=== PATIENT | female | born 1990 | race Hispanic/Latino ===

== ENCOUNTER 2022-01-08 13:10 | Emergency (ER) | payer MEDICAID ==
[~2022-01-08] VITALS: Ht 149.9 cm; Wt 59.0 kg
[2022-01-08 13:13] VITALS: BP 133/89
[2022-01-08] MEDS ORDERED: ONDANSETRON 4MG INJ IVP ONE (14:30)
[2022-01-08 14:36] LABS: APPEARANCE,URINE CLOUDY (CLEAR); BILIRUBIN,URINE NEGATIVE (NEGATIVE); COLOR,URINE YELLOW (YELLOW); GLUCOSE, URINE (UA) NEGATIVE (NEGATIVE); KETONES,URINE NEGATIVE (NEGATIVE); LEUKOCYTE ESTERASE ,URINE 500 Leu/uL (NEGATIVE); NITRATE,URINE NEGATIVE (NEGATIVE); OCCULT BLOOD,URINE NEGATIVE (NEGATIVE); PROTEIN,URINE 30 mg/dL (NEGATIVE); UROBILINOGEN,URINE 0.2 mg/dL (0.2-1.0)
[2022-01-08 14:37] LABS: BASOPHILS % (AUTO) 0.1 % (0.0-5.0); EOSINOPHILS % (AUTO) 0.4 % (0.0-8.0); HEMATOCRIT 37.2 % (36-48); LYMPHOCYTES % (AUTO) 6.6 % (21.0-51.0); MEAN CORPUSCULAR HEMOGLOBIN 27.8 pg (27.0-33.0); MEAN CORPUSCULAR HGB CONC 33.9 g/dL (32.0-36.0); MEAN CORPUSCULAR VOLUME 81.9 fL (79-99); MONOCYTES % (AUTO) 3.8 % (3.0-13.0); NEUTROPHILS % (AUTO) 88.6 % (40.0-77.0); PLATELET COUNT (AUTO) 320 K/uL (130-400); RED BLOOD CELL COUNT(AUTO) 4.54 MIL/uL (4.00-5.50); RED CELL DISTRIBUTION WIDTH 12.9 % (11.0-15.5); WHITE BLOOD COUNT (AUTO) 13.3 K/uL (4.8-10.8)
[2022-01-08 14:41] LABS: HCG,QUALITATIVE URINE NEGATIVE (NEGATIVE)
[2022-01-08 14:46] LABS: CREATININE 0.7 mg/dL (0.5-1.5); POTASSIUM 3.8 mmol/L (3.5-5.1)
[2022-01-08 14:49] LABS: BACTERIA,URINE MOD /HPF (None Seen); MUCUS,URINE MANY LPF (None Seen); SQUAMOUS EPITHELIAL CELL,UR MANY /HPF (0-2); WBC,URINE 26-50 /HPF (0-1)
[2022-01-08 14:53] LABS: TOTAL PROTEIN, SERUM 7.7 g/dL (6.0-8.3)
[2022-01-08] MEDS ORDERED: CEPH500B PO (14:59)
[2022-01-08] MEDS ORDERED: CEFTRIAXONE 1G VIAL IVP ONE (15:00)
== END 2022-01-08 15:31 | disposition home or self-care (01) ==
LOC: EDH 13:10
DX: N39.0 Urinary tract infection, site not specified (principal)
CPT/HCPCS: 99284; 96374; 96375; 80053; 83690; 85025; 87088; 87804 ×2; 81001; 81025; 36415; J0696; J2405

== ENCOUNTER → 2022-05-15 | Emergency (ER) | payer MEDICAID ==
[~2022-05-15] VITALS: Ht 149.9 cm; Wt 63.5 kg
[~2022-05-15] MED LIST: CEPH500B PO
[2022-05-15 12:32] LABS: HCG,QUALITATIVE URINE NEGATIVE (NEGATIVE)
[2022-05-15 12:33] LABS: APPEARANCE,URINE CLOUDY (CLEAR); BILIRUBIN,URINE NEGATIVE (NEGATIVE); COLOR,URINE LIGHT-YELLOW (YELLOW); GLUCOSE, URINE (UA) NEGATIVE (NEGATIVE); KETONES,URINE NEGATIVE (NEGATIVE); LEUKOCYTE ESTERASE ,URINE NEGATIVE Leu/uL (NEGATIVE); NITRATE,URINE NEGATIVE (NEGATIVE); OCCULT BLOOD,URINE LARGE (NEGATIVE); PH,URINE 7.5 (5.0-8.0); PROTEIN,URINE 10 mg/dL (NEGATIVE); UROBILINOGEN,URINE 0.2 mg/dL (0.2-1.0)
[2022-05-15 12:35] LABS: BACTERIA,URINE FEW /HPF (None Seen); MUCUS,URINE RARE LPF (None Seen); RBC,URINE 51-100 /HPF (0-1); SQUAMOUS EPITHELIAL CELL,UR RARE /HPF (0-2)
[2022-05-15 14:25] LABS: BASOPHILS % (AUTO) 0.4 % (0.0-5.0); EOSINOPHILS % (AUTO) 1.2 % (0.0-8.0); HEMATOCRIT 34.8 % (36-48); LYMPHOCYTES % (AUTO) 24.7 % (21.0-51.0); MEAN CORPUSCULAR HEMOGLOBIN 26.8 pg (27.0-33.0); MEAN CORPUSCULAR HGB CONC 32.2 g/dL (32.0-36.0); MEAN CORPUSCULAR VOLUME 83.3 fL (79-99); MONOCYTES % (AUTO) 6.5 % (3.0-13.0); NEUTROPHILS % (AUTO) 66.8 % (40.0-77.0); PLATELET COUNT (AUTO) 386 K/uL (130-400); RED BLOOD CELL COUNT(AUTO) 4.18 MIL/uL (4.00-5.50); RED CELL DISTRIBUTION WIDTH 13.4 % (11.0-15.5); WHITE BLOOD COUNT (AUTO) 10.4 K/uL (4.8-10.8)
[2022-05-15 14:33] VITALS: BP 122/86
[2022-05-15 14:39] LABS: CREATININE 0.8 mg/dL (0.5-1.5); POTASSIUM 3.8 mmol/L (3.5-5.1)
[2022-05-15 14:44] LABS: ALBUMIN 3.8 g/dL (3.5-5.0); TOTAL PROTEIN, SERUM 7.3 g/dL (6.0-8.3)
== END ==
LOC: EDH 11:10
DX: N93.9 Abnormal uterine and vaginal bleeding, unspecified (principal); Z98.890 Other specified postprocedural states
CPT/HCPCS: 36415; 74176; 80053; 81001; 81025; 85025

== ENCOUNTER 2022-08-01 17:52 | Emergency (ER) | payer MEDICAID, OTHER ==
[~2022-08-01] VITALS: Ht 152.4 cm; Wt 63.5 kg
[2022-08-01 18:00] VITALS: BP 132/93
[2022-08-01] MEDS ORDERED: KETO10TA2 PO (19:24)
[2022-08-01] MEDS ORDERED: CYCL-309 PO (19:24)
[2022-08-01] MEDS ORDERED: KETOROLAC 15MG/ML VIAL (15MG/ML) IM ONE (19:30)
[2022-08-01] MEDS ORDERED: CYCLOBENZAPRINE HCL 10 MG TABLET PO ONE (19:30)
== END 2022-08-01 19:35 | disposition home or self-care (01) ==
LOC: EDH 17:52
DX: M62.830 Muscle spasm of back (principal)
CPT/HCPCS: 99283; 96372; J1885

== ENCOUNTER 2023-04-29 12:45 | Emergency (ER) | payer OTHER ==
[~2023-04-29] VITALS: Ht 149.9 cm; Wt 59.0 kg
[~2023-04-29 12:45] MED LIST changes: +CYCL-309 PO; +KETO10TA2 PO
[2023-04-29 13:38] LABS: HEMATOCRIT 35.3 % (36-48); MEAN CORPUSCULAR HEMOGLOBIN 27.1 pg (27.0-33.0); MEAN CORPUSCULAR HGB CONC 32.3 g/dL (32.0-36.0); RED BLOOD CELL COUNT(AUTO) 4.2 MIL/uL (4.00-5.50); RED CELL DISTRIBUTION WIDTH 13.8 % (11.0-15.5)
[2023-04-29 13:40] LABS: BILIRUBIN,URINE NEGATIVE (NEGATIVE); COLOR,URINE YELLOW (YELLOW); GLUCOSE, URINE (UA) NEGATIVE (NEGATIVE); KETONES,URINE NEGATIVE (NEGATIVE); LEUKOCYTE ESTERASE ,URINE 500 Leu/uL (NEGATIVE); NITRATE,URINE NEGATIVE (NEGATIVE); OCCULT BLOOD,URINE NEGATIVE (NEGATIVE); PROTEIN,URINE 10 mg/dL (NEGATIVE); UROBILINOGEN,URINE 0.2 mg/dL (0.2-1.0)
[2023-04-29 13:42] LABS: HCG,QUALITATIVE URINE NEGATIVE (NEGATIVE)
[2023-04-29 13:43] LABS: ADD UA MICROSCOPIC YES; APPEARANCE,URINE HAZY (CLEAR)
[2023-04-29 13:46] LABS: BACTERIA,URINE FEW /HPF (None Seen); MUCUS,URINE RARE LPF (None Seen); SQUAMOUS EPITHELIAL CELL,UR MOD /HPF (0-2); WBC,URINE 26-50 /HPF (0-1)
[2023-04-29 13:50] LABS: BILIRUBIN,TOTAL 0.3 mg/dL (0.2-1.0); CREATININE 0.7 mg/dL (0.5-1.5); POTASSIUM 3.8 mmol/L (3.5-5.1); TOTAL PROTEIN, SERUM 7.4 g/dL (6.0-8.3)
[2023-04-29] MEDS ORDERED: LACTATED RINGERS 1000ML 1,000 ML IV ONE (16:00)
[2023-04-29] MEDS ORDERED: CEFTRIAXONE 1G VIAL IVPB ONE (16:00)
[2023-04-29] MEDS ORDERED: MORPHINE 4 MG SYG IVP ONE (16:00)
[2023-04-29] MEDS ORDERED: ONDANSETRON 4MG INJ IVP ONE (16:00)
[2023-04-29] MEDS ORDERED: DOXY-252 PO (18:33)
[2023-04-29] MEDS ORDERED: IBUP-2070 PO (18:33)
[2023-04-29] MEDS ORDERED: METR-172 PO (18:33)
[2023-04-29] MEDS ORDERED: CEPH500T PO (18:33)
[2023-04-29 18:59] VITALS: BP 118/64; PULSE 78; RESP 18; O2SAT 100
== END 2023-04-29 19:03 | disposition home or self-care (01) ==
LOC: EDH 12:45
DX: N73.9 Female pelvic inflammatory disease, unspecified (principal); N39.0 Urinary tract infection, site not specified; N89.8 Other specified noninflammatory disorders of vagina; Z79.899 Other long term (current) drug therapy; Z98.890 Other specified postprocedural states
CPT/HCPCS: 99285; 96365; 76856; 96375; 80053; 84703; 85027; 87210; 87088; 87797; 87486; 81001; 81025; 36415; J7120; J0696; J2405; J2270

== ENCOUNTER 2023-07-01 14:20 | Emergency (ER) | payer OTHER ==
[~2023-07-01] VITALS: Ht 149.9 cm; Wt 63.5 kg
[~2023-07-01 14:20] MED LIST changes: +CEPH500T PO; +DOXY-252 PO; +IBUP-2070 PO; +METR-172 PO
[2023-07-01 15:54] LABS: RAPID GROUP A STREP positive (NEGATIVE)
[2023-07-01 15:55] LABS: SARS-CoV-2, RNA, NAAT NEGATIVE SARS CoV-2 (NEGATIVE)
[2023-07-01 16:01] LABS: INFLUENZA TYPE A Negative For Type A (NEGATIVE); INFLUENZA TYPE B Negative For Type B (NEGATIVE)
[2023-07-01] MEDS ORDERED: IBUP-2077 PO (16:10)
[2023-07-01] MEDS ORDERED: PENI500T2 PO (16:10)
[2023-07-01 16:25] VITALS: BP 120/72; PULSE 100; RESP 18; O2SAT 98
== END 2023-07-01 16:31 | disposition home or self-care (01) ==
LOC: EDH 14:20
DX: J02.0 Streptococcal pharyngitis (principal); Z20.822 Contact with and (suspected) exposure to COVID-19; Z98.890 Other specified postprocedural states; Z79.899 Other long term (current) drug therapy
CPT/HCPCS: 87635; 87804; 87880